=== PATIENT | female | born 1985 | race Caucasian/White ===

== ENCOUNTER 2025-01-07 14:37 | Emergency (ER) | payer MEDICAID, SELFPAY ==
[2025-01-07] VITALS (7 sets, daily range): BP systolic 104–126; BP diastolic 79–88; PULSE 78–89; RESP 16–94; TEMP 36.5–36.8; O2SAT 97–100; BMI 31.1
--- NOTE | 2025-01-07 14:41 | EKG_ITS ---
[facility] Test Date: 2025-01-07 Pat Name: DOUGLAS FAN Department: Room: - Gender: Female Computer Support Analyst: : 1985 Requested By: Ulysses Farrar Order Number: [id number] Reading MD: Ulysses Farrar Measurements Intervals [place] Rate: 79 P: 64 NM: 166 QRS: 63 QRSD: 89 T: 63 QT: 416 QTc: 477 Interpretive Statements SINUS RHYTHM No previous ECG available for comparison /store/S0/[id number]/[id number].pdf
--- NOTE | 2025-01-07 14:41 | XR_ITS ---
Examination: AP chest single view Technique one AP portable upright chest single view Exam date and time: 2024 1424 hrs. Comparison November 17, 2019 Indications: Shortness of breath beginning 2 days ago. Findings: Normal heart size. No pneumonia or pulmonary edema Impression: No pneumonia or pulmonary edema
--- NOTE | 2025-01-07 14:41 | PD.EDADULT ---
ED General RME/HPI General Chief complaint: Allergic Reaction Stated complaint: SHORTNESS OF BREATH Time Seen by Provider: 01/07/25 14:43 Arrival date/time: 01/07/25 14:37 RME / HPI RME / HPI narrative: Patient is a 39 years old female with PMH of kidney stones, ovarian cyst, active vape smoker and fentanyl user, hx of tobacco methamphetamine and heroin use presented to the ED by ambulance due to difficulty breathing and rash over her body. She reports she went to the bathroom at the tire store, washed her hands with soap and was leaving store when she notice her skin on extremities started tingling and she developed facial flushing, she got into her car and developed shortness of breath and she pulled over by fire station from where she was taking to the ED. She smokes vape daily and smoked the same vape today as before. She denies any new medications, new food or drinks, animal or insect bite, contacts with [place]bu[place] or other plants. She also denies any new perfume, soap or shampoo. She denies rash being itchy. She also denies fever, chills, nausea, vomiting, diarrhea, abdominal pain, disuria symptoms. She reports she stopped fentanyl 2 days ago and was started on methadone, last fentanyl dose 4 days ago. She previously was on methadone for 6 month but relapsed. Related Data Home Medications ?Medication ?Instructions ?Recorded ?Confirmed baclofen 20 mg tablet 20 mg PO BID 01/11/22 01/11/22 methadone 40 mg soluble tablet 40 mg PO QDAY 01/11/22 01/11/22 Allergies Allergy/AdvReac Type Severity Reaction Status Date / Time No Known Allergies Allergy Verified 01/11/22 03:12 Review of Systems Review of Systems Systems Reviewed: All systems reviewed, normal except as documented ED Exam Narrative Physical exam: Gen: Well-developed and well-nourished female. HEENT: NCAT, PERRLA, EOMI, MMM, anicteric conjunctivae, face is flushed. CVS: normal S1 and S2. Regular tachycardia. No M/R/G. Resp: wheezing and rhonchi B/L. No rales or crackles. Abd: soft, non-tender, non-distended. BS+ in all 4 quadrants. MSK: Good ROM in BUE & BLE. No edema. Blanching macular rash over her chest and abdomen, not itchy or tender. Neuro: CN II-XII grossly intact. Strength 5/5 in BUE & BLE. Alert and oriented x3. Psych: appears anxious. Course Quality Measures none Orders Category Date Time Status Building Drafting Officer Q4H START 00 Care 01/07/25 14:42 Active EKG (ED ONLY) *Do not use* NOW Care 01/07/25 14:42 Completed IV [Insert IV] NOW Care 01/07/25 14:42 Active CXR2 [XR chest 2V] Stat Exams 01/07/25 14:41 Completed EKG (ED Only) Stat Exams 01/07/25 14:41 Draft BNP [B-Type Natriuretic Peptide] Stat Lab 01/07/25 15:06 Completed CBC Stat Lab 01/07/25 15:06 Completed CMP [Comprehensive Metabolic Panel] Stat Lab 01/07/25 15:06 Completed Drug Screen,Urine Stat Lab 01/07/25 15:28 Ordered Lactate (Lactic Acid) Stat Lab 01/07/25 15:06 Completed Procalcitonin Stat Lab 01/07/25 15:06 Completed Troponin I Stat Lab 01/07/25 15:06 Completed Urinalysis Stat Lab 01/07/25 15:28 Ordered DiphenhydrAMINE [Benadryl] Med 01/07/25 15:16 Discontinued 50 mg PO X1 ONE Famotidine [Pepcid] Med 01/07/25 15:16 Discontinued 40 mg PO X1 ONE predniSONE Med 01/07/25 15:16 Discontinued 40 mg PO X1 ONE Oxygen Delivery NOW RT 01/07/25 14:42 Active Vital Signs Vital signs: Vital Signs Temperature 97.7 F 01/07/25 14:50 Pulse Rate 87 01/07/25 14:50 Respiratory Rate 16 01/07/25 14:50 Blood Pressure 123/81 01/07/25 14:50 Pulse Oximetry (%) 98 01/07/25 14:50 Oxygen Delivery Method Room Air 01/07/25 14:50 Procedures -ED EKG Interpretation #1: Date of EK01/07/25 Time of EK:58 Rate: 79 Interpretation: Reviewed by me EKG Impression: Normal sinus rhythm MDM Patient data External records reviewed:: [facility] previous records and EMS form Clinical information provided by:: patient, EMS and family Social determinants that could affect healthcare access:: substance use Patient has the following chronic illnesses:: kidney stones, ovarian cyst, active vape smoker and fentanyl user, hx of tobacco methamphetamine and heroin use How is presenting disease/condition affected by chronic disease/condition?: exacerbated by Evaluation data The following diagnostics were reviewed and interpreted by me:: lab results, radiology exam(s) and EKG tracing(s) Lab and/or radiology exams considered but not ordered:: CTA Interpretation Summary: hyperglycemia, microcytic anemia Medications Medications considered but not ordered:: na Medication administrations:: Medication Administration History Discontinued Medications Diphenhydramine HCl (Diphenhydramine Elix 25 Mg/10 Ml Udc) 50 mg PO X1 ONE Stop: 01/07/25 15:17 Last Admin: 01/07/25 15:31 Dose: 50 mg Documented By: DD Famotidine (Famotidine 20 Mg Tablet) 40 mg PO X1 ONE Stop: 01/07/25 15:17 Last Admin: 01/07/25 15:31 Dose: 40 mg Documented By: DD Prednisone (Prednisone 20 Mg Tablet) 40 mg PO X1 ONE Stop: 01/07/25 15:17 Last Admin: 01/07/25 15:31 Dose: 40 mg Documented By: DD as above Consultations Consultation(s) initiated? (list below): No Diagnosis Differential Diagnosis ED Complaint MDM: allergic reaction, COPD exacerbation, PE, CAP Most likely diagnosis given after review of the tests above:: allergic reaction Admission Indicated Admission indicated?: not indicated (passed to assistant casino shift manager) Explain why admission is indicated or not indicated:: passed to assistant casino shift manager Admission Request Was there a request for admission?: No Disposition Plan Disposition Plan: other (specify) (passed to assistant casino shift manager) Medical Decision Making Differential Diagnosis Differential Diagnosis: allergic reaction, COPD exacerbation, PE, CAP Lab Data 01/07/25 15:06 01/07/25 15:06 Labs: Lab Results 01/07/25 Range/Units 15:06 WBC 3.9 (3.6-11.0) Thou/mm3 RBC 4.84 (4.00-5.20) Miln/mm3 Hgb 11.1 L (12.0-16.0) g/dL Hct 34.6 L (36.0-46.0) % MCV 72 L (80-100) fL MCH 22.9 L (25.0-35.0) pg MCHC 32.1 (31.0-37.0) g/dl RDW Std Deviation 42.5 (36.4-46.3) fL Plt Count 278 (140-440) Thou/mm3 Neut % (Auto) 59 (37-80) % Lymph % (Auto) 33 (10-50) % [place] % (Auto) 6 (0-12) % Eos % (Auto) 2 (0-10) % Baso % (Auto) 0 (0-2.5) % Neut # (Auto) 2.3 (1.8-7.7) Thou/mm3 Lymph # (Auto) 1.3 (1.0-4.8) Thou/mm3 [place] # (Auto) 0.2 (0.0-0.8) Thou/mm3 Eos # (Auto) 0.1 (0.0-0.5) Thou/mm3 Baso # (Auto) 0.0 (0.0-0.2) Thou/mm3 Immature Gran # (Auto) 0.02 H (0.00-0.00) Thou/mm3 Absolute Nucleated RBC 0.00 (0.00-0.00) Thou/mm3 Immature Gran % 1 H (0-0) % Nucleated RBC % 0 (0) /100 WBC Sodium 141 (136-145) mMol/L Potassium 3.7 (3.4-5.1) mMol/L Chloride 107 (98-107) mMol/L Carbon Dioxide 24.5 (20.0-31.0) mMol/L Anion Gap 10 (7-16) BUN 17 (9-23) mg/dL Creatinine 0.7 (0.6-1.3) mg/dL Estim Creat Clear Calc 94.8 (>60) mL/min eGFR > 60 (60 - ) See Note BUN/Creatinine Ratio 24 H (12-20) Ratio Glucose 110 H (74-106) mg/dL Calculated Osmolality 283 (275-295) Lactic Acid 1.1 (0.4-2.0) mMol/L Calcium 8.6 (8.3-10.6) mg/dL Corrected Calcium 8.8 (8.5-10.1) mg/dL Total Bilirubin 0.2 L (0.3-1.2) mg/dL AST 17 (0-34) U/L ALT 15 (10-49) U/L Alkaline Phosphatase 75 (46-116) U/L Troponin I < 0.002 (0.0-0.045) ng/mL B-Natriuretic Peptide 20 (0-100) pg/mL Total Protein 6.6 (5.7-8.2) gm/dL Albumin 3.7 (3.5-5.0) gm/dL Globulin 2.9 (2.3-3.5) gm/dL Albumin/Globulin Ratio 1.3 (1.2-2.2) Procalcitonin 0.10 (0.0-0.49) ng/ml Discharge Plan Prescriptions/Referrals Prescriptions/Med Rec: No Action baclofen 20 mg tablet 20 mg PO BID Patient Comments: TAKE ONE TABLET BY MOUTH EVERY 8 HOURS methadone 40 mg Tablet,Soluble 40 mg PO QDAY Referrals: Blake Hernandez MD [Primary Care Provider] - In 1 week Problem List Clinical Impression: Allergic reaction, Urticaria Patient/Caregiver Discharge Instructions Print Language: Bengali
[2025-01-07 15:22] LABS: Lactate (Lactic Acid) 1.1 mMol/L (0.4-2.0)
[2025-01-07 15:23] LABS: Basophils % (Auto) 0 % (0-2.5); Eosinophils # (Auto) 0.1 Thou/mm3 (0.0-0.5); Eosinophils % (Auto) 2 % (0-10); Hematocrit 34.6 % (36.0-46.0); Hemoglobin 11.1 g/dL (12.0-16.0); Immature Granulocytes % (Auto) 1 % (0-0); Immature Granulocytes Auto 0.02 Thou/mm3 (0.00-0.00); Lymphocytes # (Auto) 1.3 Thou/mm3 (1.0-4.8); Lymphocytes % (Auto) 33 % (10-50); Mean Corpuscular HGB Conc 32.1 g/dl (31.0-37.0); Mean Corpuscular Hemoglobin 22.9 pg (25.0-35.0); Mean Corpuscular Volume 72 fL (80-100); Monocytes # (Auto) 0.2 Thou/mm3 (0.0-0.8); Monocytes % (Auto) 6 % (0-12); Neutrophils # (Auto) 2.3 Thou/mm3 (1.8-7.7); Neutrophils % (Auto) 59 % (37-80); Nucleated Red Blood Cell % 0 /100 WBC (0); Platelet Count 278 Thou/mm3 (140-440); RDW Standard Deviation 42.5 fL (36.4-46.3); Red Blood Count 4.84 Miln/mm3 (4.00-5.20); White Blood Count 3.9 Thou/mm3 (3.6-11.0)
[2025-01-07] MEDS: DiphenhydrAMINE ELIX 25 MG/10 ML UDC 50 MG PO (15:31)
[2025-01-07] MEDS: predniSONE 20 MG TABLET 40 MG PO (15:31)
[2025-01-07] MEDS: FAMOTIDINE 20 MG TABLET 40 MG PO (15:31)
[2025-01-07 15:45] LABS: B-Type Natriuretic Peptide 20 pg/mL (0-100)
[2025-01-07 15:56] LABS: Alanine Aminotransferase 15 U/L (10-49); Albumin, Serum 3.7 gm/dL (3.5-5.0); Albumin/Globulin Ratio 1.3 (1.2-2.2); Alkaline Phosphatase 75 U/L (46-116); Anion Gap 10 (7-16); Aspartate Amino Transferase 17 U/L (0-34); BUN/Creatinine Ratio 24 Ratio (12-20); Bilirubin,Total 0.2 mg/dL (0.3-1.2); Blood Urea Nitrogen 17 mg/dL (9-23); Calcium 8.6 mg/dL (8.3-10.6); Calcium (Corrected) 8.8 mg/dL (8.5-10.1); Carbon Dioxide 24.5 mMol/L (20.0-31.0); Chloride 107 mMol/L (98-107); Creatinine (Component) 0.7 mg/dL (0.6-1.3); Estimated Creatinine Clearance 94.8 mL/min (>60); Globulin 2.9 gm/dL (2.3-3.5); Glucose 110 mg/dL (74-106); Osmolality,Calculated 283 (275-295); Potassium 3.7 mMol/L (3.4-5.1); Sodium 141 mMol/L (136-145); Total Protein 6.6 gm/dL (5.7-8.2); Troponin I < 0.002 ng/mL (0.0-0.045); eGFR > 60 See Note
[2025-01-07 18:21] LABS: Collection Type, Urine Clean Catch; RBC,Urine 0 /hpf (0-3)
--- NOTE | 2025-01-07 18:29 | EDNOTE_ITS ---
Emergency Room Addendum Addendum Narrative: I took over the care from Dr. Alvarenga (and resident working with him) at 6 PM on 01/07/2025, see previous notes for complete H&P and ED course. I reviewed all diagnostic test results. At this point, diagnoses include allergic reaction and lower respiratory infection and UTI. Treatment here included IV fluid and Solu-Medrol and DuoNeb and ceftriaxone and Zithromax. Significant improvement noted. Recommended a trial of outpatient treatment. Based on my best medical judgment, made decision no further evaluation or treatment indicated at this time. Patient understands and agrees to the discharge instructions customized and printed, see below. Discharge instructions from Dr. Trujillo: --No physical exertion for 3 days to help rest the lungs. ?-No smoking or exposure to smoking or pets or dust or cold air. --Zithromax to kill the germs causing the bronchitis. --Cefdinir for UTI. --Prednisone to help decrease the swelling in the airways, will prevent allergic reaction going to airways. --Albuterol 2 puffs every 4-6 hours for 3 days to help keep the airways open. Then as needed for cough or shortness of breath. --See a private doctor on 01/09/2025 for recheck and further care. Ask for help until you are completely better. Ask for referral to see an load tallier. So you can be tested to know what to avoid in the future. --Seek immediate medical care with worsening or with any concerns. Abhay Trujillo MD
[2025-01-07] MEDS: cefTRIAXone 1,000 MG in SODIUM CHLORIDE 0.9% (Popper) 50 ML 100 MG IV (18:37)
[2025-01-07] MEDS: AZITHROMYCIN 250 MG TABLET 500 MG PO (18:37)
[2025-01-07 18:39] LABS: Bacteria,Urine 3+; Bilirubin,Urine Negative (Negative); Blood,Urine Negative (Negative); Clarity,Urine Turbid (Clear/Hazy); Color,Urine Yellow (Lt Yel-Yel); Glucose, Urine Negative (Negative); Ketones,Urine Negative (Negative); Leukocyte Esterase,Urine Positive (Negative); Nitrite,Urine Positive (Negative); PH,Urine 6.5 (5.0-7.0); Protein,Urine Trace (Neg - Trace); Specific Gravity,Urine 1.029 (1.001-1.035); Squamous Epithelial Cell,Urine 4 /hpf (0-5); Urobilinogen,Urine Negative mg/dL (0.0-1.0); WBC,Urine 9 /hpf (0-5)
[2025-01-07] MEDS: SODIUM CHLORIDE 0.9% 1000 ML 1,000 ML 999 ML IV (18:39)
[2025-01-07] MEDS: DiphenhydrAMINE INJ 50 MG/ML VIAL IV (18:39)
[2025-01-07] MEDS: METHADONE HCL 10 MG TABLET 40 MG PO (18:42)
[2025-01-07] MEDS: MethylPREDNISolone SOD SUCC 62.5 MG/ML 2ML VIAL 125 MG IVP (18:43)
[2025-01-07] MEDS: ALBUTEROL/IPRATROPIUM (Duoneb) RT SOL 3 ML NEBU INH (18:47)
[2025-01-07 20:48] LABS: Amphetamine/Methamp Scrn,U Positive (Negative); Barbiturate Screen,Urine Negative (Negative); Benzodiazepines Screen,Urine Negative (Negative); Benzoylecgonine Screen, Ur Negative (Negative); Fentanyl Screen,Urine Positive (Negative); Opiate Screen,Urine Negative (Negative); THC Screen,Urine Negative (Negative)
== END 2025-01-07 19:30 | disposition home or self-care (01) ==
PROVIDERS: Student in an Organized Health Care Education/Training Program; Emergency Provider Emergency Medicine; PCP Family Medicine
DX: L50.0 Allergic urticaria (principal); R06.02 Shortness of breath
CPT/HCPCS: 36415; 71046; 80053; 80307; 81001; 83605; 83880; 84145; 84484; 85025; 93005; 94640; 96365; 96375; 99284; A9270; J0696; J1200; J2919; J7030; J7050; J7512